=== PATIENT | male | born 1935 | race Caucasian/White ===

== ENCOUNTER 2018-03-04 15:05 | Observation (INO) | payer MEDICARE, OTHER ==
[2018-03-04 15:05] VITALS: BMI 24.3
[2018-03-04] MEDS ORDERED: Sodium Chloride 0.9% 1,000 ML IV ONE ×2 (15:26→17:09)
--- NOTE | 2018-03-04 15:42 | C.PDOC ---
History Of Present Illness 82 y/o male with history of HTN presents to ED with c/o abdominal pain for 1 day associated with diarrhea. Patient denies fever, chills, vomiting, dysuria, back pain or any other complaints at this time. Time Seen by Provider: 03/04/18 15:17 Chief Complaint (Nursing): Abdominal Pain History Per: Patient History/Exam Limitations: no limitations Onset/Duration Of Symptoms: Days Current Symptoms Are (Timing): Still Present Location Of Pain/Discomfort: Diffuse Past Medical History Reviewed: Historical Data, Nursing Documentation, Vital Signs Vital Signs: Last Vital Signs Temp 98.7 F 03/04/18 17:27 Pulse 91 H 03/04/18 17:27 Resp 19 03/04/18 17:27 BP 126/74 03/04/18 17:27 Pulse Ox 96 03/04/18 17:27 - Medical History PMH: HTN Surgical History: No Surg Hx Family History: States: No Known Family Hx - Social History Hx Alcohol Use: No Hx Substance Use: No Review Of Systems Constitutional: Negative for: Fever, Chills Gastrointestinal: Positive for: Abdominal Pain, Diarrhea. Negative for: Nausea , Vomiting Genitourinary: Negative for: Dysuria, Hematuria Musculoskeletal: Negative for: Back Pain Physical Exam - Physical Exam Appears: Non-toxic, No Acute Distress Skin: Warm, Dry, No Rash Head: Atraumatic, Normacephalic Eye(s): bilateral: Normal Inspection Oral Mucosa: Moist Neck: Normal ROM, Supple Cardiovascular: Rhythm Regular Respiratory: Normal Breath Sounds, No Rales, No Rhonchi, No Wheezing Gastrointestinal/Abdominal: Soft, Tenderness (Diffuse worse on left side), No Guarding, No Rebound Back: No CVA Tenderness Neurological/Psych: Oriented x3, Normal Speech, Normal Cognition ED Course And Treatment - Laboratory Results Result Diagrams: 03/04/18 15:46 03/04/18 15:46 Lab Interpretation: Abnormal O2 Sat by Pulse Oximetry: 96 (RA) Pulse Ox Interpretation: Normal - CT Scan/US No standard instances Other Rad Studies (CT/US): Read By Radiologist, Radiology Report Reviewed CT/US Interpretation: FINDINGS: LOWER THORAX: Unremarkable. LIVER: Multiple hepatic cysts. Additional small low-density structures are too small to characterize. No ductal dilatation. GALLBLADDER AND BILE DUCTS: Unremarkable. PANCREAS: Unremarkable. No gross lesion or ductal dilatation. SPLEEN: Unremarkable. ADRENALS: Unremarkable. No mass. KIDNEYS AND URETERS: Unremarkable. No hydronephrosis. No solid mass. VASCULATURE: Unremarkable. No aortic aneurysm. BOWEL: Liquid feces. No obstruction. No gross mural thickening. APPENDIX: No findings to suggest acute appendicitis. PERITONEUM: Unremarkable. Minimal perihepatic and perisplenic ascites. No free air. LYMPH NODES: Unremarkable. No enlarged lymph nodes. BLADDER: Unremarkable. REPRODUCTIVE: Prostatic radiation seeds. BONES: No acute fracture. OTHER FINDINGS: None. IMPRESSION: No acute abdominal pelvic pathology. Multiple hepatic cysts with additional small too small to characterize low-density structures. Liquid feces. Minimal perihepatic and perisplenic ascites. Progress Note: Treated with IVF NSS x 2 liters. Treated with bentyl IM. On re- evaluation abdomen soft mild tenderness Reassessment Condition: Improved - Physician Consult Information Physician Contacted: Juhi Brown Outcome Of Conversation: admit Disposition Discussed With : Juhi Brown Doctor Will See Patient In The: Hospital - Disposition Disposition: HOSPITALIZED Disposition Time: 17:40 Condition: STABLE Forms: [employer] [facility] (Turkmen) - POA Present On Arrival: None - Clinical Impression Clinical Impression: Dehydration, Abdominal pain, Diarrhea - PA / GUEST EXPERIENCE SPECIALIST / Resident Statement MD/DO has reviewed & agrees with the documentation as recorded. - Scribe Statement The provider has reviewed the documentation as recorded by the Cristina Fajardo All medical record entries made by the Cristina were at my direction and personally dictated by me. I have reviewed the chart and agree that the record accurately reflects my personal performance of the history, physical exam, medical decision making, and the department course for this patient. I have also personally directed, reviewed, and agree with the discharge instructions and disposition. Decision To Admit - Pt Status Changed To: Hospital Disposition Of: Observation - . Bed Request Type: Regular Admitting Physician: Juhi Brown Patient Diagnosis: Abdominal pain, Diarrhea, Dehydration
[2018-03-04 15:51] LABS: BASO # 0.1 K/uL (0.0-0.2); BASO % 0.4 % (0.0-2.0); EOS # 0.1 K/uL (0.0-0.7); EOS % 0.4 % (0.0-4.0); HEMOGLOBIN 14.4 g/dL (12.0-18.0); LYMPH # 1.5 K/uL (1.0-4.3); LYMPH % 10.2 % (20.0-40.0); MEAN CELL VOLUME 85.8 fL (80.0-94.0); MEAN CORPUSCULAR HEMOGLOBIN 28.8 pg (27.0-31.0); MEAN CORPUSCULAR HGB CONC 33.5 g/dL (33.0-37.0); MEAN PLATELET VOLUME 9.8 fL (7.2-11.7); MONO # 0.5 K/uL (0.0-0.8); MONO % 3.4 % (0.0-10.0); NEUT # 12.9 K/uL (1.8-7.0); NEUT % 85.6 % (50.0-75.0); RED CELL DISTRIBUTION WIDTH 13.6 % (11.5-14.5); WHITE BLOOD COUNT 15.1 K/uL (4.8-10.8)
[2018-03-04 16:09] LABS: ALB/GLOB RATIO 1.2 (1.0-2.1); ALBUMIN 4.2 g/dL (3.5-5.0); CALCIUM 8.6 mg/dl (8.6-10.4)
[2018-03-04 17:06] LABS: URINE BILIRUBIN 1+ (NEGATIVE); URINE CLARITY Clear (Clear); URINE COLOR YELLOW (YELLOW); URINE GLUCOSE (UA) NEGATIVE (Normal)
[2018-03-04 17:07] LABS: URINE BLOOD 1+ (NEGATIVE); URINE LEUKOCYTE ESTERASE NEGATIVE Leu/uL (Negative); URINE PROTEIN 2+ mg/dL (NEGATIVE); URINE UROBILINOGEN 0.2 mg/dL (0.2-1.0)
--- NOTE | 2018-03-04 17:27 | CT ---
Date of service: 03/04/2018 PROCEDURE: CT Abdomen and Pelvis without intravenous contrast HISTORY: Pain COMPARISON: None. TECHNIQUE: Contiguous images were obtained from the domes of the diaphragms to the upper thighs without the administration of intravenous contrast. Oral contrast was not administered. Radiation dose: Total exam DLP = 1013.8 mGy-cm. This CT exam was performed using one or more of the following dose reduction techniques: Automated exposure control, adjustment of the mA and/or kV according to patient size, and/or use of iterative reconstruction technique. FINDINGS: LOWER THORAX: Unremarkable. LIVER: Multiple hepatic cysts. Additional small low-density structures are too small to characterize. No ductal dilatation. GALLBLADDER AND BILE DUCTS: Unremarkable. PANCREAS: Unremarkable. No gross lesion or ductal dilatation. SPLEEN: Unremarkable. ADRENALS: Unremarkable. No mass. KIDNEYS AND URETERS: Unremarkable. No hydronephrosis. No solid mass. VASCULATURE: Unremarkable. No aortic aneurysm. BOWEL: Liquid feces. No obstruction. No gross mural thickening. APPENDIX: No findings to suggest acute appendicitis. PERITONEUM: Unremarkable. Minimal perihepatic and perisplenic ascites. No free air. LYMPH NODES: Unremarkable. No enlarged lymph nodes. BLADDER: Unremarkable. REPRODUCTIVE: Prostatic radiation seeds. BONES: No acute fracture. OTHER FINDINGS: None. IMPRESSION: No acute abdominal pelvic pathology. Multiple hepatic cysts with additional small too small to characterize low-density structures. Liquid feces. Minimal perihepatic and perisplenic ascites.
[2018-03-04] MEDS ORDERED: Sodium Chloride 0.9% 1,000 ML ONE (17:28)
[2018-03-04] MEDS ORDERED: Dextrose 5%/0.45% NS 1,000 ML IV ONE (19:53)
[2018-03-04] MEDS: Dextrose 5%/0.45% NS 1,000 ML IV SCH (19:55)
[2018-03-04 21:47] VITALS: RESP 20
[2018-03-05] MEDS: Dextrose 5%/0.45% NS 1,000 ML IV SCH ×2 (05:00→15:06)
--- NOTE | 2018-03-05 07:51 | CP.PCM.PN ---
Subjective - Date & Time of Evaluation Date of Evaluation: 03/05/18 Time of Evaluation: 07:30 - Subjective Subjective: PGY-[address] Brown's service: Pt seen and examined at bedside. Nursing reports no acute events overnight. Patient reports diarrhea has ceased this AM with no additional episodes overnight. 2-3/10 bilateral lower abdominal pain. Describes as intermittent "spasm" pain. Denies blood in stool. Denies recent travel. Patient is an 82 y/o male with PMHx of HTN presents to ED with c/o abdominal pain for 1 day associated with diarrhea. Patient denies fever, chills, vomiting , dysuria, back pain or any other complaints at this time. Objective - Vital Signs/Intake and Output Vital Signs (last 24 hours): Temp Pulse Resp BP Pulse Ox 98.2 F 85 20 122/77 96 03/05/18 05:30 03/05/18 00:16 03/05/18 00:16 03/05/18 00:16 03/05/18 01:00 Intake and Output: 03/05/18 03/05/18 06:59 18:59 Intake Total 200 Balance 200 - Medications Medications: Current Medications Donepezil HCl (Aricept) 10 mg PO DAILY [facility] Heparin Sodium (Porcine) (Heparin) 5,000 units SC Q8 [facility] Last Admin: 03/05/18 05:55 Dose: 5,000 units Dextrose/Sodium Chloride (Dextrose 5%/0.45% Ns 1000 Ml) 1,000 mls @ 100 mls/hr IV .Q10H [facility] Last Admin: 03/05/18 05:00 Dose: 100 mls/hr Levetiracetam (Keppra) 500 mg PO BID [facility] Meclizine HCl (Antivert) 25 mg PO TID PRN PRN Reason: Dizziness Pantoprazole Sodium (Protonix Inj) 40 mg IVP DAILY [facility] Tamsulosin HCl (Flomax) 0.4 mg PO DAILY [facility] - Labs Labs: 03/04/18 15:46 03/04/18 15:46 Assessment and Plan - Assessment and Plan (Free Text) Plan: Dehydration Persistent Diarrhea Obs on med/surg WBC 15.1, Afebrile Pt reports no additional diarrhea CT A/P (03/04/18): IMPRESSION: No acute abdominal pelvic pathology. Multiple hepatic cysts with additional small too small to characterize low-density structures. Liquid feces. Minimal perihepatic and perisplenic ascites. D5/ 1/2 NS @ 100ml/hr - 2L IV NS in ED Bentyl IM once in ED Cipro 400mg IV Q12H (start 03/05) Flagyl 500mg IV Q12H (start 03/05) Florastor 250mg PO BID f/u stool studies, AM labs Leukocytosis, with left shift Admission: WBC 15.1, no bandemia Pt afebrile See above for antibiotics Hepatic cysts Seen on CT A/P (03/04/18): IMPRESSION: No acute abdominal pelvic pathology. Multiple hepatic cysts with additional small too small to characterize low- density structures. Liquid feces. Minimal perihepatic and perisplenic ascites. DUC (? on CKD) Etiology: Dehydration Cr 2.5 on admission, GFR 25 - Cr improved to 1.6 Continue to monitor Proteinuria UA (03/03/18): 2+ protein Dementia Donepezil 10mg PO Daily Hematuria Hx of prostate cancer UA (03/03/18): 1+ blood BPH Hx of prostate cancer Prostatic radiation seeds seen on CT Flomax 0.4mg PO Daily Vertigo Antivert 25mg PO TID HTN Well controlled on admission Patient on home combo pill of Amlodipine/Valsartan/HCTZ -Due to DUC will hold NIRMAL, will restart other components as needed HCTZ 12.5mg PO Daily Amlodipine 5mg PO Daily Flomax 0.4mg PO Daily Seizure D/O Keppra 500mg PO BID PPX Heart Healthy, Low Sodium Diet Protonix 40mg IV Daily Heparin 5k units Q8H [facility] Florastor 250mg PO BID Camilo Torres PGY-2 Medical management per Kevin
[2018-03-05 11:10] LABS: BASO # 0.1 K/uL (0.0-0.2); BASO % 0.9 % (0.0-2.0); EOS # 0.1 K/uL (0.0-0.7); EOS % 1.3 % (0.0-4.0); HEMOGLOBIN 12.7 g/dL (12.0-18.0); LYMPH # 2.4 K/uL (1.0-4.3); LYMPH % 25.2 % (20.0-40.0); MEAN CELL VOLUME 85.4 fL (80.0-94.0); MEAN CORPUSCULAR HEMOGLOBIN 29.1 pg (27.0-31.0); MEAN CORPUSCULAR HGB CONC 34.1 g/dL (33.0-37.0); MEAN PLATELET VOLUME 10.4 fL (7.2-11.7); MONO # 0.5 K/uL (0.0-0.8); MONO % 5.5 % (0.0-10.0); NEUT # 6.5 K/uL (1.8-7.0); NEUT % 67.1 % (50.0-75.0); RBC 4.38 Mil/uL (4.40-5.90); RED CELL DISTRIBUTION WIDTH 13.7 % (11.5-14.5); WHITE BLOOD COUNT 9.7 K/uL (4.8-10.8)
[2018-03-05 11:32] LABS: CALCIUM 8.4 mg/dl (8.6-10.4)
[2018-03-05] MEDS: metroNIDAZOLE IV 500 mg/100 ml 500 MG/100 ML BAG IVPB SCH ×2 (14:23→22:29)
[2018-03-05] MEDS: Potassium Chloride 20 mEq ER Tab PO SCH ×2 (14:24→15:04)
[2018-03-05] MEDS: Ciprofloxacin 400mg/200ml D5W 400 MG/200 ML BAG IVPB SCH (16:00)
[2018-03-05] MEDS: Saccharomyces Boulardi 250 mg Cap PO SCH (17:47)
[2018-03-06 00:55] VITALS: O2SAT 97
[2018-03-06] MEDS: Dextrose 5%/0.45% NS 1,000 ML IV SCH (01:45)
[2018-03-06] MEDS: Ciprofloxacin 400mg/200ml D5W 400 MG/200 ML BAG IVPB SCH (03:15)
[2018-03-06] MEDS: metroNIDAZOLE IV 500 mg/100 ml 500 MG/100 ML BAG IVPB SCH (05:45)
--- NOTE | 2018-03-06 07:28 | CP.PCM.PN ---
Subjective - Date & Time of Evaluation Date of Evaluation: 03/06/18 Time of Evaluation: : - Subjective Subjective: PGY-[address] Brown's service: Pt seen and examined at bedside. Nursing reports no acute events overnight. Patient denies further episodes of diarrhea or vomiting overnight. Also denies fever, chills. Admits abd pain has improved since admission. He reports tolerating diet and voiding without difficulty. Objective - Vital Signs/Intake and Output Vital Signs (last 24 hours): Temp Pulse Resp BP Pulse Ox 98.4 F 64 20 141/74 97 03/06/18 00:00 03/06/18 00:00 03/06/18 00:00 03/06/18 00:00 03/06/18 01:00 Intake and Output: 03/06/18 03/06/18 06:59 18:59 Intake Total 1100 Output Total 1700 Balance -600 - Medications Medications: Current Medications Amlodipine Besylate (Norvasc) 5 mg PO Q24H [facility] Last Admin: 03/05/18 14:24 Dose: 5 mg Donepezil HCl (Aricept) 10 mg PO DAILY [facility] Last Admin: 03/05/18 10:42 Dose: 10 mg Heparin Sodium (Porcine) (Heparin) 5,000 units SC Q8 [facility] Last Admin: 03/06/18 05:45 Dose: 5,000 units Hydrochlorothiazide (Microzide) 12.5 mg PO DAILY [facility] Dextrose/Sodium Chloride (Dextrose 5%/0.45% Ns 1000 Ml) 1,000 mls @ 100 mls/hr IV .Q10H [facility] Last Admin: 03/06/18 01:45 Dose: Not Given Ciprofloxacin (Cipro 400mg/200ml Dsw) 400 mg in 200 mls @ 133 mls/hr IVPB Q12H [facility] PRN Reason: Protocol Last Admin: 03/06/18 03:15 Dose: 133 mls/hr Metronidazole (Flagyl) 500 mg in 100 mls @ 100 mls/hr IVPB Q8H [facility] PRN Reason: Protocol Last Admin: 03/06/18 05:45 Dose: 100 mls/hr Levetiracetam (Keppra) 500 mg PO BID [facility] Last Admin: 03/05/18 17:46 Dose: 500 mg Meclizine HCl (Antivert) 25 mg PO TID PRN PRN Reason: Dizziness Pantoprazole Sodium (Protonix Inj) 40 mg IVP DAILY [facility] Last Admin: 03/05/18 10:42 Dose: 40 mg Saccharomyces Boulardii (Florastor) 250 mg PO BID [facility] Last Admin: 03/05/18 17:47 Dose: 250 mg Tamsulosin HCl (Flomax) 0.4 mg PO DAILY [facility] Last Admin: 03/05/18 10:42 Dose: 0.4 mg - Labs Labs: 03/05/18 11:02 03/05/18 11:02 - Constitutional Appears: Non-toxic, No Acute Distress - Head Exam Head Exam: ATRAUMATIC, NORMAL INSPECTION - Eye Exam Eye Exam: EOMI, Normal appearance. absent: Scleral icterus Pupil Exam: PERRL - ENT Exam ENT Exam: Mucous Membranes Moist - Neck Exam Neck Exam: Full ROM - Respiratory Exam Respiratory Exam: Clear to Ausculation Bilateral, NORMAL BREATHING PATTERN - Cardiovascular Exam Cardiovascular Exam: REGULAR RHYTHM, +S1, +S2 - GI/Abdominal Exam GI & Abdominal Exam: Soft, Tenderness (Mild b/l lower quadrants), Normal Bowel Sounds - Extremities Exam Extremities Exam: Normal Inspection. absent: Pedal Edema, Tenderness - Back Exam Back Exam: absent: CVA tenderness (L), CVA tenderness (R) - Neurological Exam Neurological Exam: Alert, Awake, Oriented x3 - Psychiatric Exam Psychiatric exam: Normal Affect, Normal Mood - Skin Skin Exam: Dry, Normal Color, Warm Assessment and Plan - Assessment and Plan (Free Text) Plan: Dehydration Persistent Diarrhea Obs on med/surg WBC WNL, Afebrile Pt reports no additional diarrhea CT A/P (03/04/18): IMPRESSION: No acute abdominal pelvic pathology. Multiple hepatic cysts with additional small too small to characterize low-density structures. Liquid feces. Minimal perihepatic and perisplenic ascites. Lipase 194 (WNL) D5/ 1/2 NS @ 100ml/hr - 2L IV NS in ED Bentyl IM once in ED Cipro 400mg IV Q12H (start 03/05, Day 2) Flagyl 500mg IV Q12H (start 03/05, Day 2) Florastor 250mg PO BID Leukocytosis, with left shift, resolved Admission: WBC 15.1, no bandemia Pt afebrile See above for antibiotics Hepatic cysts Seen on CT A/P (03/04/18): IMPRESSION: No acute abdominal pelvic pathology. Multiple hepatic cysts with additional small too small to characterize low- density structures. Liquid feces. Minimal perihepatic and perisplenic ascites. DUC (? on CKD) Etiology: Dehydration Cr 2.5 on admission, GFR 25 - Cr improved to 1.6 Continue to monitor Proteinuria UA (03/03/18): 2+ protein Dementia Donepezil 10mg PO Daily Hypophosphatemia Phos 2.3 Monitor AM labs Hematuria Hx of prostate cancer UA (03/03/18): 1+ blood BPH Hx of prostate cancer Prostatic radiation seeds seen on CT Flomax 0.4mg PO Daily Vertigo Antivert 25mg PO TID HTN Well controlled on admission Patient on home combo pill of Amlodipine/Valsartan/HCTZ -Due to DUC will hold NIRMAL, will restart other components as needed HCTZ 12.5mg PO Daily Amlodipine 5mg PO Daily Flomax 0.4mg PO Daily Seizure D/O Keppra 500mg PO BID PPX Heart Healthy, Low Sodium Diet Protonix 40mg IV Daily Heparin 5k units Q8H [facility] Florastor 250mg PO BID Camilo Torres PGY-2 Medical management per Kevin
--- NOTE | 2018-03-06 08:09 | HP ---
HISTORY OF PRESENT ILLNESS: Mr. Pike is an 82-year-old man, admitted to the hospital with a chief complaint of nausea, vomiting, diarrhea, and abdominal pain. The patient came to the ER, advised admission. The patient has a history of hypertension, renal insufficiency, dementia. PHYSICAL EXAMINATION: GENERAL: The patient is awake, alert, oriented. VITAL SIGNS: Temperature 98, pulse 90. HEENT: Within normal limits. NECK: Supple. CHEST: Symmetrical. HEART: Regular. ABDOMEN: Soft. EXTREMITIES: No edema. ASSESSMENT AND PLAN: hypertension and dementia. The patient is to bedrest. Supportive care. IV hydration. Juhi Brown MD
[2018-03-06 08:32] VITALS: BP 159/87; PULSE 83; TEMP 98.2
[2018-03-06] MEDS: Saccharomyces Boulardi 250 mg Cap PO SCH (11:00)
== END 2018-03-06 13:19 | disposition home or self-care (01) ==
LOC: C.ER 15:05 → C.9E 17:31 → C.3T 20:22
PROVIDERS: ADMIT Internal Medicine Pulmonary Disease; ATTEND Internal Medicine Pulmonary Disease
DX: E86.0 Dehydration (principal); N17.9 Acute kidney failure, unspecified; I10 Essential (primary) hypertension; F03.90 Unspecified dementia, unspecified severity, without behavioral disturbance, psychotic disturbance, mood disturbance, and anxiety; K76.89 Other specified diseases of liver; R18.8 Other ascites; N40.1 Benign prostatic hyperplasia with lower urinary tract symptoms; R31.9 Hematuria, unspecified; Z85.46 Personal history of malignant neoplasm of prostate; R42 Dizziness and giddiness; G40.909 Epilepsy, unspecified, not intractable, without status epilepticus; R80.9 Proteinuria, unspecified; E83.39 Other disorders of phosphorus metabolism
CPT/HCPCS: 36415; 74176; 80048; 80053; 81001; 83605; 83690; 83735; 84100; 85025; 96361; 96365; 96366; 96367; 96372; 96375; 96376; 99285; C9113; G0378; J0500; J0744; J1644; J7030; J7042